=== PATIENT | female | born 1990 | race Caucasian/White ===

== ENCOUNTER 2017-06-26 13:55 | Inpatient (IN) | payer OTHER ==
[2017-06-26 15:05] LABS: RETICULOCYTES 1.66 % (0.5-1.5)
[2017-06-26 15:26] LABS: URIC ACID 3.8 mg/dL (2.6-7.2)
[2017-06-26 15:36] LABS: URINE APPEARANCE CLEAR; URINE BILIRUBIN NEGATIVE (NEGATIVE); URINE BLOOD NEGATIVE (NEGATIVE); URINE COLOR YELLOW; URINE GLUCOSE (UA) NEGATIVE (NEGATIVE); URINE KETONE NEGATIVE (NEGATIVE); URINE LEUK ESTERASE 1+ (NEGATIVE); URINE NITRITE NEGATIVE (NEGATIVE); URINE PROTEIN 3+ (NEGATIVE)
[2017-06-26 15:41] LABS: EPI CELLS RARE /HPF (FEW); URINE BACTERIA RARE /hpf (NONE SEEN); URINE HYALINE CAST 7 /lpf; URINE MUCUS MODERATE
[2017-06-26 16:02] LABS: RATIO URIN PROTEIN/URIN CREAT 4.3 MG/DL
[2017-06-26] MEDS ORDERED: DEXTROSE 5%-LACTATED RINGERS 1,000 ML IV SCH (16:30)
[2017-06-26 16:38] LABS: BASO % 0.3 % (0-2.0); EOS % 0.2 % (0-4.5); HEMATOCRIT 34.9 % (32.4-45.2); HEMOGLOBIN 11.7 GM/dL (10.7-15.3); LYMPH % 30.6 % (8-40); MCH 28.3 pg (25.7-33.7); MCHC 33.5 g/dl (32.0-36.0); MEAN CELL VOLUME 84.6 fl (80-96); MEAN PLT VOLUME 10.9 fl (7.5-11.1); MONO % 5.7 % (3.8-10.2); NEUT % 63.2 % (42.8-82.8); PLATELET COUNT 204 K/MM3 (134-434); RBC 4.12 M/mm3 (3.60-5.2); RDW 14.5 % (11.6-15.6); WHITE BLOOD COUNT 7.9 K/mm3 (4.0-10.0)
[2017-06-26 16:40] VITALS: BMI 35.7
[2017-06-26] MEDS ORDERED: PROMETHAZINE HCL 25 MG/1 ML VIAL IVPUSH ONE (16:45)
[2017-06-26] MEDS ORDERED: BUTORPHANOL TARTRATE 1 MG/ML VIAL IVPB ONE (16:45)
[2017-06-26 16:49] LABS: INR 0.91 (0.82-1.09); PROTHROMBIN TIME (PATIENT) 10.3 SEC (9.98-11.88)
--- NOTE | 2017-06-26 16:49 | HP ---
Past Medical History - Primary Care Physician PCP:: Ivanna Schroeder - Admission Chief Complaint: 26 yrs , 37.2 weeks by sono, 40 weeks by dates is admitted for induction of labor due to preclempsia . 06/26/17 sono with M, 37.2 weeks, Vx , reinaldo 11.0, , bpp8/8, efW 5'7" (17 %tile ) History of Present Illness: h/o PNC at 4, [facility] , wt gain 22 lbs , h/o headache yesterday urine protein 2+ since 27 weeks 04/19/16 , & 3+ protein since 06/19/17 38 weeks onwards until 06/19/16 BP 107-120 systolic/66-78 diastolic subsequently BP noted as 134/83, 147/90 . pt did not submit 24 hr urine protein before , she submitted today BP in hosp 150/93 , 3+ protein urine protein/cr ratio is 4.3 panel 01/06/17 A pos, Rubella immune, Rpr nr, Hbsag neg, Sickle neg, Hiv neg, gc/ct neg 04/18/17 Quantiferon pos, 1 hr Gtt 116, Rpr nr, 06/19/17 GBs neg, Hiv neg, h/h 12.2/37.5, Plt 264, Ast 26, alt 35 , uric acid 4.3 pt seen by MFM , serial sono done for growth NT Screen & Modified Sequential neg , doppler study normal baby asprin stopped after 34 weeks History Source: Patient, Medical Record Limitations to Obtaining History: No Limitations - Past Medical History HOSPITALITY HOUSEKEEPER: Yes: Other (h/oheadache present preg .) Cardiovascular: Yes: HTN (h/o preclempsia past ppregn in 2013 at 32 weeks) Pulmonary: No: Asthma Gastrointestinal: Yes: Constipation Renal/: Yes: UTI (h/o uti 2 weeks ago treted) ...: 3 ...Para: 1 ...Term: 0 ...: 1 (11/16/13 , 32-34wks 4'3" ) ...Spon : 0 ...Induced : 1 (11/2014) ...LMP: 09/19/16 ... 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 No: HIV, STD's Psych: Yes: Anxiety. No: Addictions, Depression, Psychosis, Schizophrenia Endocrine: No: Diabetes Mellitus, Hypothyroidism - Past Surgical History Past Surgical History: Yes: None, Tonsillectomy Hx Myomectomy: No Hx Transabdominal Cerclage: No - Smoking History Smoking history: Never smoked Have you smoked in the past 12 months: No - Alcohol/Substance Use Hx Alcohol Use: No History of Substance Use: reports: None - Social History History of Recent Travel: No Home Medications - Allergies Allergies/Adverse Reactions: Allergies Allergy/AdvReac Type Severity Reaction Status Date / Time No Known Allergies Allergy Verified 06/26/17 15:05 - Home Medications Home Medications: Ambulatory Orders Pnv No.95/Ferrous Fum/Folic AC [ Vitamin Tablet] 1 each PO DAILY Physical Exam - Maternity Vital Signs: Vital Signs Temperature 97.9 F 06/26/17 14:33 Pulse Rate 68 06/26/17 15:30 Respiratory Rate 18 06/26/17 15:30 Blood Pressure 141/75 06/26/17 15:30 O2 Sat by Pulse Oximetry (%) Selected Entries 06/26/17 06/26/17 15:05 15:13 Blood Pressure 151/93 140/91 Constitutional: Yes: Well Nourished, Obese Eyes: Yes: WNL HENT: Yes: WNL, Normocephalic Neck: Yes: WNL Cardiovascular: Yes: WNL, Regular Rate and Rhythm Lungs: Clear to auscultation Breast(s): Yes: WNL - Abdominal Exam/OB Fundal Height: 38 Number of Fetuses: Single Presentation: Vertex Contractions: No Monitor Mode: External Heart Rate (range): 135 Heart Rate Location: [facility] Category: I Accelerations: Uniform Decelerations: None - Vaginal Exam/OB Vaginal Bleediing: No Speculum Exam: No Dilatation (cm): 1 Effacement (%): 70 Amniotic Membrane Status: Intact Presentation: Vertex/Position Station: -3 - Physical Exam Musculoskeletal: Yes: WNL Extremities: Yes: WNL. No: Calf Tenderness Edema: Yes Edema: LLE: 1+, RLE: 1+ Integumentary: Yes: Tattoos Deep Tendon Reflex Grade: Normal +2 ...Motor Strength: WNL Psychiatric: Yes: WNL, Alert, Oriented - Labs Lab Results: Laboratory Tests 06/26/17 06/26/17 06/26/17 14:30 14:30 15:15 WBC Hgb Hct Plt Count 206 Neutrophils % Lymphocytes % Monocytes % Retic Count 1.66 H D PT with INR INR PTT (Actin FS) Sodium Potassium Chloride Carbon Dioxide BUN Creatinine Random Glucose Uric Acid 3.8 Calcium GGT 70 D AST 38 H ALT 59 Urine Protein 3+ H Ur Leukocyte Esterase 1+ H Urine WBC (Auto) 13 Urine RBC (Auto) 1 Hyaline Casts 7 U Random Total Protein Urine Creatinine Protein/Creatinin Ratio Blood Type Antibody Screen 06/26/17 06/26/17 06/26/17 15:15 15:30 15:30 WBC 7.9 D Hgb 11.7 Hct 34.9 Plt Count Neutrophils % 63.2 Lymphocytes % 30.6 Monocytes % 5.7 Retic Count PT with INR 10.30 INR 0.91 PTT (Actin FS) 31.1 Sodium Potassium Chloride Carbon Dioxide BUN Creatinine Random Glucose Uric Acid Calcium GGT AST ALT Urine Protein Ur Leukocyte Esterase Urine WBC (Auto) Urine RBC (Auto) Hyaline Casts U Random Total Protein 432 H Urine Creatinine 103.0 Protein/Creatinin Ratio 4.3 Blood Type Antibody Screen 06/26/17 06/26/17 15:30 15:30 WBC Hgb Hct Plt Count Neutrophils % Lymphocytes % Monocytes % Retic Count PT with INR INR PTT (Actin FS) Sodium 139 Potassium 4.4 Chloride 104 Carbon Dioxide 23 BUN 13 Creatinine 0.4 L Random Glucose 81 Uric Acid Calcium 8.0 L GGT AST ALT Urine Protein Ur Leukocyte Esterase Urine WBC (Auto) Urine RBC (Auto) Hyaline Casts U Random Total Protein Urine Creatinine Protein/Creatinin Ratio Blood Type A POSITIVE Antibody Screen Negative Problem List - Problems (1) 37 or more weeks gestation of Code(s): [id number] - (2) Preeclampsia Code(s): O14.90 - UNSPECIFIED PRE-ECLAMPSIA, UNSPECIFIED TRIMESTER Qualifiers: Trimester: third trimester Qualified Code(s): O14.93 - Unspecified pre- eclampsia, third trimester (3) Elective induction of labor planned Code(s): [id number] - Assessment/Plan 26 yrs 37.2 weeks by sono, 40 weeks by dates admitted due to persistent 3+ proteinuria, symptomatic with headache, Mild elevation of BP Plan HELLP work up neg, urine protein/cr ratio 4.2 ( elevated) cervidil induction of labor ( inserted at 5.05 PM , cx findings same as before ) trial vag delivery
[2017-06-26 16:52] LABS: ACTIVATED PTT 31.1 SECONDS (26.9-34.4)
[2017-06-26] MEDS ORDERED: DINOPROSTONE 10 MG VAGINAL SUPPOSITORY VG ONE (17:05)
[2017-06-26] MEDS ORDERED: SODIUM PHOSPHATE/NA BIPHOS 133 ML ENEMA PR ONE (17:15)
[2017-06-26 17:37] LABS: ANION GAP 12 (8-16); BLOOD UREA NITROGEN 13 mg/dL (7-18); CHLORIDE 104 mmol/L (98-107); CO2 23 mmol/L (21-32); GLUCOSE,RANDOM 81 mg/dL (74-106); POTASSIUM 4.4 mmol/L (3.5-5.1); SODIUM 139 mmol/L (136-145)
[2017-06-26 17:38] LABS: CREATININE 0.4 mg/dL (0.55-1.02)
[2017-06-26] MEDS ORDERED: ACETAMINOPHEN 325 MG TABLET (FP) ONE ×2 (19:37→23:11)
[2017-06-26] MEDS ORDERED: ACETAMINOPHEN 325 MG TABLET (FP) PO ONE (20:00)
[2017-06-26] MEDS ORDERED: LIDOCAINE HCL 1% PRESERVATIVE FREE - 30ML VIAL ONE (21:33)
[2017-06-26] MEDS ORDERED: OXYTOCIN 20 UNITS in 0.9% NS 20 UNIT/1,000 ML INFUS.BAG IV ONE (21:33)
[2017-06-26] MEDS ORDERED: WITCH HAZEL 50% (TUCKS) 40 PAD/JAR PAD TP PRN (22:06)
[2017-06-26] MEDS ORDERED: oxyCODONE HCL 5 MG TABLET PO PRN (22:06)
[2017-06-26] MEDS ORDERED: BISACODYL 10 MG SUPP.RECT RC PRN (22:06)
[2017-06-26] MEDS ORDERED: BENZOCAINE 20% 57 GM BOTTLE TP PRN (22:06)
[2017-06-26] MEDS ORDERED: BENZOCAINE 28 GM HEMORRHOIDAL OINTMENT TP PRN (22:06)
[2017-06-26] MEDS ORDERED: METHYLERGONOVINE MALEATE 0.2 MG/1 ML AMP IM PRN (22:06)
[2017-06-26] MEDS ORDERED: OXYTOCIN 20 UNITS in 0.9% NS 20 UNIT/1,000 ML INFUS.BAG IV SCH (22:15)
--- NOTE | 2017-06-26 22:20 | PN ---
Progress Note (short form) - Note Progress Note: 06/26/17 8.20 Pm 2cm/70 %/Srom/clear/vx /-1 Uc irregular fhr 120 cervidil in vagina 9,05 PM 8 cm/ 100%/ vx +2 fhr cat-2 , base line 120, variable decel 100 UC q2 min pt pushing 9.30 PM : 10 cm/100% / vx +3 ./ FHR 130, down to 60 , cat -2 UC q1-2 min 9.35PM Selected Entries 06/26/17 06/26/17 06/26/17 16:00 17:00 18:00 Pulse Rate Blood Pressure 135/74 136/74 132/76 06/26/17 20:00 Pulse Rate 69 Blood Pressure 130/79 Problem List - Problems (1) 37 or more weeks gestation of Code(s): [id number] - (2) Preeclampsia Code(s): O14.90 - UNSPECIFIED PRE-ECLAMPSIA, UNSPECIFIED TRIMESTER Qualifiers: Trimester: third trimester Qualified Code(s): O14.93 - Unspecified pre- eclampsia, third trimester (3) Elective induction of labor planned Code(s): [id number] -
--- NOTE | 2017-06-26 22:27 | PN ---
Delivery - Delivery Vaginal Delivery: No Problems, V-Faina Type of Anesthesia: None Episiotomy/Laceration: None EBL (cc): 400 (st cath 100 ml urine ) Delivery, Single - Stages of Labor Date 1st Stage Initiatied: 06/26/17 Time 1st Stage Initiated: 18:00 Date 2nd Stage Initiated: 06/26/17 Time 2nd Stage Initiated: 21:30 Date of Delivery: 06/26/17 Time of Delivery: 21:35 Time Placenta Delivered: 21:45 Placenta: Yes: Spontaneous, Uterine Exploration - Condition of Infant Bath Mix Operator/Cardiac Cath Technologist Present: Yes Name: Matthew Downing Infant Gender: Male Weight: 5 lb 15 oz Position: Left, OA Total Hours ROM (Hrs/Mins): 1HR 25MIN - 1 Minute Total Score: 9 5 Minutes Total Score: 9 - Feeding Plan Initial Plan: Exclusive throughout hospitalization Remarks - Remarks Remarks: 26 yrs , 37.2 weeks by sono, 40 weeks by dates . ,, GBs neg admitted due to persistent proteinuria 3=, Mi;d preeclempsia, symptomatic for headache 06/26/17 cervidil inserted at 5.05 Pm pt progressed in labor with cervidil she did not get any pain meds
[2017-06-26] MEDS: ACETAMINOPHEN 325 MG TABLET (FP) PO PRN (23:17)
--- NOTE | 2017-06-27 07:41 | PN ---
Post Progress Note - Subjective Subjective: no c/o pain , no c/o headache Post Day: 1 Type of Delivery: Vital Signs: Vital Signs Temperature 98.6 F 06/27/17 06:00 Pulse Rate 73 06/27/17 06:00 Respiratory Rate 18 06/27/17 06:00 Blood Pressure 140/76 06/27/17 06:00 O2 Sat by Pulse Oximetry (%) 100 06/26/17 22:35 Selected Entries 06/26/17 06/26/17 06/27/17 22:50 23:00 00:10 Blood Pressure 145/79 136/66 123/74 Breast Exam: Yes: Soft, Other (plans to BF ). No: Engorged Uterus: Yes: Fundus Firm, Fundus below umbilicus, Non-tender Lochia: Yes: Rubra Lochia, amount: Moderate Extremities: Yes: Calves non-tender, Edema (Reflexes normal ) Perineum: Yes: Intact Activity: Ambulating - Labs Labs: CBC WBC 7.9 K/mm3 (4.0-10.0) D 06/26/17 15:30 RBC 4.12 M/mm3 (3.60-5.2) 06/26/17 15:30 Hgb 11.7 GM/dL (10.7-15.3) 06/26/17 15:30 Hct 34.9 % (32.4-45.2) 06/26/17 15:30 MCV 84.6 fl (80-96) 06/26/17 15:30 MCH 28.3 pg (25.7-33.7) 06/26/17 15:30 MCHC 33.5 g/dl (32.0-36.0) 06/26/17 15:30 RDW 14.5 % (11.6-15.6) D 06/26/17 15:30 Plt Count 204 K/MM3 (134-434) 06/26/17 15:30 MPV 10.9 fl (7.5-11.1) 06/26/17 15:30 Neutrophils % 63.2 % (42.8-82.8) 06/26/17 15:30 Lymphocytes % 30.6 % (8-40) 06/26/17 15:30 Monocytes % 5.7 % (3.8-10.2) 06/26/17 15:30 Eosinophils % 0.2 % (0-4.5) 06/26/17 15:30 Basophils % 0.3 % (0-2.0) 06/26/17 15:30 Retic Count 1.66 % (0.5-1.5) H D 06/26/17 14:30 Haptoglobin 122 mg/dL (34-200) 06/26/17 14:30 Problem List - Problems (1) 37 or more weeks gestation of Code(s): [id number] - (2) Preeclampsia Code(s): O14.90 - UNSPECIFIED PRE-ECLAMPSIA, UNSPECIFIED TRIMESTER Qualifiers: Trimester: third trimester Qualified Code(s): O14.93 - Unspecified pre- eclampsia, third trimester (3) Elective induction of labor planned Code(s): [id number] - (4) (spontaneous vaginal delivery) Code(s): O80 - ENCOUNTER FOR FULL-TERM UNCOMPLICATED DELIVERY Assessment/Plan stable s/p preclempsia , proteinuria 3+ , mild BP elevation Plan watch for BP repeat cbc today repeat urine protein.cr ratio p
[2017-06-27] MEDS: FERROUS SO4 325 MG TABLET (FP) PO SCH ×2 (07:55→17:05)
[2017-06-27 07:59] LABS: BASO % 0.2 % (0-2.0); EOS % 0.1 % (0-4.5); HEMATOCRIT 27.2 % (32.4-45.2); HEMOGLOBIN 8.9 GM/dL (10.7-15.3); LYMPH % 24.7 % (8-40); MCH 27.9 pg (25.7-33.7); MCHC 32.9 g/dl (32.0-36.0); MEAN CELL VOLUME 84.8 fl (80-96); MEAN PLT VOLUME 10.8 fl (7.5-11.1); MONO % 6.4 % (3.8-10.2); NEUT % 68.6 % (42.8-82.8); PLATELET COUNT 173 K/MM3 (134-434); RDW 14.7 % (11.6-15.6)
[2017-06-27] MEDS: PRENATAL VITAMINS W/ FOLIC ACID TABLET (FP) PO SCH (09:29)
[2017-06-27] MEDS: ACETAMINOPHEN 325 MG TABLET (FP) PO PRN (09:29)
[2017-06-27] MEDS ORDERED: DIPHTH,PERTUSS(ACELL),TET 0.5 ML DISP.SYRIN IM ONE (10:00)
[2017-06-27] MEDS ORDERED: LABETALOL HCL 100 MG TABLET (FP) PO PRN (14:00)
[2017-06-27 16:24] LABS: URINE CREATININE 46.3 mg/dL (20-320)
[2017-06-27] MEDS ORDERED: SENNOSIDES/DOCUSATE COMBO (SENNA PLUS) TABLET (UD) PO PRN (22:00)
[2017-06-28] MEDS: FERROUS SO4 325 MG TABLET (FP) PO SCH (08:53)
[2017-06-28 09:31] LABS: URINE CREATININE 39.3 mg/dL (20-320)
--- NOTE | 2017-06-28 10:13 | PN ---
Post Progress Note Post Day: 2 Type of Delivery: Vital Signs: Vital Signs Temperature 98.4 F 06/27/17 21:23 Pulse Rate 71 06/28/17 06:30 Respiratory Rate 20 06/28/17 06:30 Blood Pressure 134/94 06/28/17 06:30 O2 Sat by Pulse Oximetry (%) 100 06/26/17 22:35 Breast Exam: Yes: Soft Uterus: Yes: Fundus Firm Abdomen/GI: Yes: Abdomen soft Lochia: Yes: Rubra Lochia, amount: Small Extremities: Yes: Calves non-tender Activity: Ambulating - Labs Labs: CBC WBC 12.0 K/mm3 (4.0-10.0) H D 06/27/17 07:00 RBC 3.20 M/mm3 (3.60-5.2) L D 06/27/17 07:00 Hgb 8.9 GM/dL (10.7-15.3) L D 06/27/17 07:00 Hct 27.2 % (32.4-45.2) L D 06/27/17 07:00 MCV 84.8 fl (80-96) 06/27/17 07:00 MCH 27.9 pg (25.7-33.7) 06/27/17 07:00 MCHC 32.9 g/dl (32.0-36.0) 06/27/17 07:00 RDW 14.7 % (11.6-15.6) 06/27/17 07:00 Plt Count 173 K/MM3 (134-434) 06/27/17 07:00 MPV 10.8 fl (7.5-11.1) 06/27/17 07:00 Neutrophils % 68.6 % (42.8-82.8) 06/27/17 07:00 Lymphocytes % 24.7 % (8-40) 06/27/17 07:00 Monocytes % 6.4 % (3.8-10.2) 06/27/17 07:00 Eosinophils % 0.1 % (0-4.5) 06/27/17 07:00 Basophils % 0.2 % (0-2.0) 06/27/17 07:00 Retic Count 1.66 % (0.5-1.5) H D 06/26/17 14:30 Haptoglobin 122 mg/dL (34-200) 06/26/17 14:30 Problem List - Problems (1) care following vaginal delivery Assessment/Plan: Patient PPD#2 s/p stable for discharge home trying to breastfeed npv x 6 weeks unsure regarding contraception. Options reviewed. to think about further plan for pp visit in 4-6 weeks Code(s): Z39.2 - ENCOUNTER FOR ROUTINE FOLLOW-UP
[2017-06-28 10:37] LABS: RATIO URIN PROTEIN/URIN CREAT 0.89 MG/DL
[2017-06-28] MEDS: PRENATAL VITAMINS W/ FOLIC ACID TABLET (FP) PO SCH (10:52)
[2017-06-28 11:49] VITALS: BP 130/73; PULSE 81; TEMP 98.2
--- NOTE | 2017-06-28 22:51 | DS ---
Physical Exam-MILL CONTROLLER Vital Signs: Vital Signs Temperature 98.2 F 06/28/17 10:00 Pulse Rate 81 06/28/17 10:00 Respiratory Rate 20 06/28/17 10:00 Blood Pressure 130/73 06/28/17 10:00 O2 Sat by Pulse Oximetry (%) 100 06/26/17 22:35 Constitutional: Yes: Well Nourished, Other (no c/o headache,dizziness) Eyes: Yes: WNL HENT: Yes: WNL Neck: Yes: WNL Cardiovascular: Yes: WNL Respiratory: Yes: WNL Gastrointestinal: Yes: WNL ...Rectal Exam: Yes: WNL, Hemorrhoids/External Renal/: Yes: WNL ....Post : Yes: Uterus firm, Uterus non-tender, Moderate lochia rubra ( perineum intact) Breast(s): Yes: WNL (bf) Edema: Yes Edema: LLE: 1+, RLE: 1+ Neurological: Yes: WNL, Alert, Oriented ...Motor Strength: WNL Labs: CBC, BMP 06/27/17 07:00 06/26/17 15:30 Delivery - Delivery Vaginal Delivery: No Problems, V-Faina Type of Anesthesia: None Episiotomy/Laceration: None EBL (cc): 400 (st cath 100 ml urine ) Delivery, Single - Stages of Labor Date 1st Stage Initiatied: 06/26/17 Time 1st Stage Initiated: 18:00 Date 2nd Stage Initiated: 06/26/17 Time 2nd Stage Initiated: 21:30 Date of Delivery: 06/26/17 Time of Delivery: 21:35 Time Placenta Delivered: 21:45 Placenta: Yes: Spontaneous, Uterine Exploration - Condition of Infant Fruit Grader/Preliminary School Psychologist Present: Yes Name: Matthew Downing Infant Gender: Male Weight: 5 lb 15 oz Position: Left, OA Total Hours ROM (Hrs/Mins): 1HR 25MIN - 1 Minute Total Score: 9 5 Minutes Total Score: 9 - Feeding Plan Initial Plan: Exclusive throughout hospitalization Remarks - Remarks Remarks: 26 yrs , 37.2 weeks by sono, 40 weeks by dates . ,, GBs neg admitted due to persistent proteinuria 3=, Mi;d preeclempsia, symptomatic for headache 06/26/17 cervidil inserted at 5.05 Pm pt progressed in labor with cervidil she did not get any pain meds pp BP stable,did not require any meds. urine prtein/cr ratio lowered from 4 to 2 to 0.89, normal anemia counselled discharge today with po labetalol as reserve in case she becomes symptomatic for high BP i told her to see her pcp for BP follow up discharge 06/28/17 Discharge Summary Reason For Visit: LABOR INDUCTION Condition: Stable - Instructions Diet, Activity, Other Instructions: Post Instructions DIET: Continue good diet high in protein, calcium, and iron rich foods. Drink at least eight (8) glasses of water daily in addition to other fluids. ___ Regular diet MEDICATIONS: Continue vitamins and iron as previously directed. Motrin and Tylenol may be taken for minor discomfort. ACTIVITY: Mild to moderate exercise may be started in two (2) weeks. Take frequent rest periods. Resume normal activity after six (6) week check up. WOUND CARE OF OPERATIVE SITE: Continue use of perineal bottle until vaginal discharge stops. Keep area clean. Shower daily. Keep abdominal wound dry. Report any drainage or redness to physician. Tub baths, tampons and douches are not permitted for [address] Breast feeding & or _ Bottle feeding BREAST CARE: (For those that are not breast feeding): If engorgement occurs: Wear tight fitting bra. Take Tylenol or Motrin for pain. Apply cold packs (ice in bags to each breast ) FAMILY PLANNING: There are many control alternatives to pursue and they should be discussed at your first office visit. You may resume sexual activity after your four (4) week check up. (Remember, breast feeding is not a contraceptive) NEXT PHYSICIAN APPOINTMENT: Be certain to call for a six (6) week appointment, unless otherwise directed. Call Clinic or got to Emergency Dept if you have any of the following: Heavy vaginal bleeding Painful urination Leg pain Unusual odor noted to vaginal bleeding High fever Red streaking noted on breast Referrals: Ivanna Schroeder MD [Staff Physician] - Disposition: HOME - Home Medications Comprehensive Discharge Medication List: Ambulatory Orders Pnv No.95/Ferrous Fum/Folic AC [ Vitamin Tablet] 1 each PO DAILY Acetaminophen [Tylenol .Regular Strength -] 650 mg PO Q3H PRN tablet 06/27/17 Ferrous Sulfate [Feosol] 325 mg PO BIDWM #60 tab 06/27/17 Labetalol HCl [Normodyne -] 100 mg PO TID PRN #30 tablet 06/27/17 Vitamins (Sjr) - 1 tab PO DAILY #30 tablet 06/27/17
== END 2017-06-28 12:29 | disposition home or self-care (01) | DRG 560 ==
LOC: JDEL 13:55 → JLDR 15:49 → J3W 06-27 00:15
PROVIDERS: ADMIT Obstetrics & Gynecology; ATTEND Obstetrics & Gynecology
PROC: 10E0XZZ Delivery of Products of Conception, External Approach (ICD-10-PCS; principal; 2017-06-26)
PROC: 3E0P7VZ Introduction of Hormone into Female Reproductive, Via Natural or Artificial Opening (ICD-10-PCS; 2017-06-26)
DX: O14.03 Mild to moderate pre-eclampsia, third trimester (principal); Z3A.37 37 weeks gestation of pregnancy; Z37.0 Single live birth
CPT/HCPCS: 36415; 59409; 71046-TC-FY; 80048; 81003; 81015; 82570; 82977; 83010; 84156; 84450; 84460; 84550; 85025; 85032; 85044; 85610; 85730; 86593; 86850; 86900; 86901; 90715

== ENCOUNTER 2021-06-29 20:12 | Emergency (ER) | payer OTHER ==
[2021-06-29 20:19] VITALS: BP 131/85; PULSE 83; TEMP 98.6; BMI 30.1
[2021-06-29] MEDS ORDERED: SODIUM CHLORIDE 0.9% 500 ML INFUS.BAG IV ONE (21:58)
[2021-06-29] MEDS ORDERED: ONDANSETRON 4 MG/2 ML VIAL IVPUSH ONE (21:58)
[2021-06-29] MEDS ORDERED: FAMOTIDINE 20 MG/50 ML IVPB 20 MG/50 ML MG IVPB ONE ×2 (21:58→22:52)
[2021-06-29 22:50] LABS: URINE APPEARANCE CLEAR; URINE BILIRUBIN NEGATIVE (NEGATIVE); URINE COLOR YELLOW; URINE GLUCOSE (UA) NEGATIVE (NEGATIVE); URINE KETONE NEGATIVE (NEGATIVE); URINE LEUK ESTERASE NEGATIVE (NEGATIVE); URINE NITRITE NEGATIVE (NEGATIVE); URINE PROTEIN NEGATIVE (NEGATIVE); URINE UROBILINOGEN 0.2 mg/dL (0.2-1.0)
[2021-06-29] MEDS ORDERED: ONDANSETRON 4 MG/2 ML VIAL ONE (22:52)
[2021-06-29 23:25] LABS: BASO % 0.3 % (0-2.0); HEMATOCRIT 38.1 % (32.4-45.2); HEMOGLOBIN 13.1 GM/dL (10.7-15.3); LYMPH % 10.8 % (8-40); MCH 30.2 pg (25.7-33.7); MCHC 34.3 g/dl (32.0-36.0); MEAN CELL VOLUME 88.1 fl (80-96); MEAN PLT VOLUME 8.6 fl (7.5-11.1); MONO % 4.4 % (3.8-10.2); NEUT % 84.5 % (42.8-82.8); PLATELET COUNT 274 10^3/uL (134-434); RBC 4.33 M/mm3 (3.60-5.2); RDW 13.9 % (11.6-15.6); WHITE BLOOD COUNT 10.8 K/mm3 (4.0-10.0)
[2021-06-29 23:45] LABS: ALBUMIN 3.8 g/dl (3.4-5.0); BLOOD UREA NITROGEN 14.3 mg/dL (7-18)
[2021-06-29 23:48] LABS: CREATININE 0.9 mg/dL (0.55-1.3)
[2021-06-29 23:49] LABS: BILIRUBIN,TOTAL 0.4 mg/dL (0.2-1)
[2021-06-29 23:50] LABS: TOT PROT 7.6 g/dl (6.4-8.2)
== END 2021-06-30 00:27 | disposition home or self-care (01) ==
LOC: JER 20:12
PROC: 3E033GC Introduction of Other Therapeutic Substance into Peripheral Vein, Percutaneous Approach (ICD-10-PCS; principal; 2021-06-29)
DX: R10.13 Epigastric pain (principal); R11.10 Vomiting, unspecified
CPT/HCPCS: 36415; 80053; 81003; 83690; 84703; 85025; 87086; 99284-25

== ENCOUNTER 2022-04-03 11:12 | Emergency (ER) | payer OTHER ==
[2022-04-03 12:19] VITALS: BP 108/56; PULSE 77; RESP 18; TEMP 99
[2022-04-03] MEDS ORDERED: SODIUM CHLORIDE 1,000 ML IV STA (13:07)
[2022-04-03] MEDS ORDERED: ACETAMINOPHEN 500 MG TABLET (FP) PO ONE (13:07)
[2022-04-03] MEDS ORDERED: ACETAMINOPHEN INJECTION 100 ML IVPB ONE (13:29)
[2022-04-03 14:22] LABS: BASO % 0.3 % (0-2.0); EOS % 1.2 % (0-4.5); HEMOGLOBIN 13.8 GM/dL (10.7-15.3); MCH 29.1 pg (25.7-33.7); MCHC 32.1 g/dl (32.0-36.0); MEAN CELL VOLUME 90.6 fl (80-96); MEAN PLT VOLUME 9.4 fl (7.5-11.1); MONO % 5.9 % (3.8-10.2); NEUT % 65.6 % (42.8-82.8); PLATELET COUNT 277 10^3/uL (134-434); RBC 4.75 M/mm3 (3.60-5.2); RDW 14.2 % (11.6-15.6); WHITE BLOOD COUNT 8.3 K/mm3 (4.0-10.0)
[2022-04-03 14:24] LABS: PH,URINE 6.5 (5.0-8.0); URINE APPEARANCE CLEAR; URINE BILIRUBIN NEGATIVE (NEGATIVE); URINE COLOR YELLOW; URINE GLUCOSE (UA) NEGATIVE (NEGATIVE); URINE KETONE NEGATIVE (NEGATIVE); URINE LEUK ESTERASE NEGATIVE (NEGATIVE); URINE NITRITE NEGATIVE (NEGATIVE); URINE PROTEIN NEGATIVE (NEGATIVE); URINE UROBILINOGEN 0.2 mg/dL (0.2-1.0)
[2022-04-03 14:26] LABS: HCG,QUALITATIVE URINE Negative
[2022-04-03 14:45] LABS: ALBUMIN 3.6 g/dl (3.4-5.0)
[2022-04-03 14:49] LABS: CREATININE 0.5 mg/dL (0.55-1.3)
[2022-04-03 14:51] LABS: BILIRUBIN,TOTAL 0.3 mg/dL (0.2-1); TOT PROT 7.6 g/dl (6.4-8.2)
== END 2022-04-03 18:49 | disposition home or self-care (01) ==
LOC: JER 11:12
PROC: 3E0337Z Introduction of Electrolytic and Water Balance Substance into Peripheral Vein, Percutaneous Approach (ICD-10-PCS; principal; 2022-04-03)
DX: N30.00 Acute cystitis without hematuria (principal)
CPT/HCPCS: 0241U-QW; 36415; 76830-TC; 80053; 81003; 84703; 85025; 87086; 87491; 87591; 99284-25

== ENCOUNTER 2023-12-02 10:12 | Emergency (ER) | payer OTHER ==
[2023-12-02 10:22] VITALS: BP 103/62; PULSE 94; RESP 18; TEMP 98.6; BMI 25.7
[2023-12-02] MEDS ORDERED: ACETAMINOPHEN 325 MG TABLET (FP) ONE ×2 (10:52→10:57)
[2023-12-02] MEDS: ACETAMINOPHEN 325 MG TABLET (FP) PO ONE (11:15)
[2023-12-02 11:26] LABS: HCG,QUALITATIVE URINE Negative
[2023-12-02 11:48] LABS: EPI CELLS 29 /uL (0-25.1); HYALINE CASTS 1 /uL (0-3.1); PH,URINE 6.5 (5.0-8.0); URINE APPEARANCE CLEAR; URINE BACTERIA 476 /uL (0-1359); URINE BILIRUBIN NEGATIVE (NEGATIVE); URINE COLOR YELLOW; URINE GLUCOSE (UA) NEGATIVE (NEGATIVE); URINE KETONE NEGATIVE (NEGATIVE); URINE LEUK ESTERASE 1+ (NEGATIVE); URINE NITRITE NEGATIVE (NEGATIVE); URINE PROTEIN NEGATIVE (NEGATIVE); URINE RBC 19 /uL (0-23.9); URINE UROBILINOGEN 0.2 mg/dL (0.2-1.0); URINE WBC 11 /uL (0-25.8)
== END 2023-12-02 12:42 | disposition home or self-care (01) ==
LOC: JER 10:12
DX: M79.10 Myalgia, unspecified site (principal); V43.52XA Car driver injured in collision with other type car in traffic accident, initial encounter; Y92.410 Unspecified street and highway as the place of occurrence of the external cause
CPT/HCPCS: 81003; 84703; 99283-25